=== PATIENT | male | born 2000 ===

== ENCOUNTER 2022-12-01 18:26 | Emergency (ER) | payer OTHER ==
[2022-12-01] MEDS ORDERED: Lidocaine 1% with EPINEPHrine 1:100,000 20 ML MDV INJECT STA (18:48)
[2022-12-01] MEDS ORDERED: Diphtheria,Pertussis(Acell),Tetanus Vaccine 0.5 ML Syringe IM ONE (18:48)
== END 2022-12-01 20:14 | disposition home or self-care (01) ==
LOC: MW.ED 18:26
DX: S71.111A Laceration without foreign body, right thigh, initial encounter (principal); Z23 Encounter for immunization; V18.0XXA Pedal cycle driver injured in noncollision transport accident in nontraffic accident, initial encounter
CPT/HCPCS: 12004; 90471; 90715; 99282; J3490

== ENCOUNTER 2022-12-08 07:47 | Emergency (ER) | payer OTHER | END 2022-12-08 08:10 | disposition left against medical advice (07) | LOC: MW.ED 07:47 | DX: S71.111D Laceration without foreign body, right thigh, subsequent encounter (principal); Z48.02 Encounter for removal of sutures; V89.2XXD Person injured in unspecified motor-vehicle accident, traffic, subsequent encounter | CPT/HCPCS: 99281 ==